=== PATIENT | male | born 1940 | race Two or more races ===

== ENCOUNTER 2016-11-22 06:36 | Day surgery (SDC) | payer MEDICARE, OTHER ==
--- NOTE | 2016-11-21 13:24 | Pre-Procedure Note/Attestation ---
Pre-Procedure Note/Attestation Complete Prior to Procedure Planned Procedure: right Procedure Narrative: phaco with IOL, OD Indications for Procedure Pre-Operative Diagnosis: cataract Attestation I attest that I discussed the nature of the procedure; its benefits; risks and complications; and alternatives (and the risks and benefits of such alternatives ), prior to the procedure, with the patient (or the patient's legal personal service representative). I attest that, if there was a reasonable possibility of needing a blood transfusion, the patient (or the patient's legal personal service representative) was given the [facility] standardized written summary, pursuant to the [place] Blood Safety Act ([place] Health and Safety Code # 1645, as amended). I attest that I re-evaluated the patient just prior to the surgery and that there has been no change in the patient's H&P, except as documented below: MARQUITA SAMUEL Nov 21, 2016 13:24
--- NOTE | 2016-11-21 16:20 | Opthalmology H&P ---
Ophthalmology H&P H&P Chief Complaint: decreased vision in right eye HPI Vision Affects Ability to: read, focus/use eyes together, manage personal affairs HPI Narrative blurry vision Exam Visual Acuity: OD: 20/50 OS: 20/125 Tension: OD: 17 OS: 18 Eye Exam: normal OU: anterior chambers, corneas, external exam, levator function, marginal reflex distance, palpebral fissure-width, findings: fundus exam - Retinal hole OS, lens - OD: ns OS: ns Assessment/Plan Diagnosis: (1) Cataract Treatment Plan: cataract extraction w/ lens implant Goals of Treatment: improvement of vision, enhance quality of life Attestation Attestation The risks and benefits of the surgery as well as alternative procedures were explained to the patient in detail. MARQUITA SAMUEL Nov 21, 2016 16:20
[2016-11-22] VITALS (8 sets, daily range): BP systolic 104–131; BP diastolic 47–78
[~2016-11-22] VITALS: Ht 170.2 cm; Wt 77.1 kg
[~2016-11-22 06:36] MED LIST: CRESTOR10 M2 ORAL; IBUPROFEN600 MG ORAL; LOTENSIN40 MG ORAL; NORVASC10 MG ORAL; PROSCAR5 MG ORAL
[2016-11-22] MEDS ORDERED: BSS 500ml btl ONE (07:00)
[2016-11-22] MEDS ORDERED: Maxitrol Opth Oint 3.5gm ONE (07:00)
[2016-11-22] MEDS ORDERED: EPINEPHrine 1mg/1ml Amp ONE (07:00)
[2016-11-22] MEDS ORDERED: Pred Forte 1% Opth Susp 1ml ONE (07:00)
[2016-11-22] MEDS ORDERED: Dexamethasone 4mg/ml vial ONE (07:00)
[2016-11-22] MEDS ORDERED: Akten 3.5% 1ml Btl RIGHT EYE ONE (07:00)
[2016-11-22] MEDS ORDERED: Tobramycin Op Soln 0.3% RIGHT EYE SCH (07:00)
[2016-11-22] MEDS: Tropicamide 1% Opth Soln RIGHT EYE SCH ×3 (08:27→08:44)
[2016-11-22] MEDS: Cyclopentolate 1% Opth Sol RIGHT EYE SCH ×3 (08:27→08:44)
[2016-11-22] MEDS: Ciprofloxacin Opth Soln RIGHT EYE SCH ×3 (08:27→08:44)
[2016-11-22] MEDS: Diclofenac Sod 0.1% Op Soln RIGHT EYE SCH ×3 (08:27→08:44)
[2016-11-22] MEDS: Phenylephrine 10% Opth Soln 5ml RIGHT EYE SCH ×3 (08:27→08:44)
[2016-11-22] MEDS ORDERED: NS Irrig 1000ml ONE (09:30)
[2016-11-22] MEDS ORDERED: Midazolam 2mg/2ml Inj ONE (09:30)
[2016-11-22] MEDS ORDERED: LR 1000ml ONE (09:30)
[2016-11-22] MEDS ORDERED: Sterile Water Irrig 1000ml IRRIG ONE (09:30)
[2016-11-22] MEDS ORDERED: Propofol 10mg/ml 20ml IV ONE (09:30)
[2016-11-22] MEDS ORDERED: fentaNYL 100 mcg/2 mL IV ONE (09:30)
[2016-11-22] MEDS ORDERED: LR 1000ml 1,000 ML IVLG SCH (09:57)
--- NOTE | 2016-11-22 09:57 | Anethesia Preoperative Eval ---
Anesthesia Pre-op PMH/ROS General Date of Evaluation: Nov 22, 2016 Time of Evaluation: 09:26 Anesthesiologist: Chacha ASA Score: ASA 2 Mallampati Score Class I : Soft palate, uvula, fauces, pillars visible Class II: Soft palate, uvula, fauces visible Class III: Soft palate, base of uvula visible Class IV: Only hard plate visible Mallampati Classification: Class II Surgeon: Britney Diagnosis: R eye cataract Surgical Procedure: R eye cataract extraction Anesthesia History: none Family History: no anesthesia problems Allergies: Coded Allergies: No Known Allergies (Unverified , 11/20/16) Medications: see eMAR Past Medical History Cardiovascular: Reports: HTN Pulmonary: Denies: COPD, ADALBERTO, asthma, other Gastrointestinal/Genitourinary: Reports: GERD, Denies: CRI, ESRD, other Neurologic/Psychiatric: Reports: depression/anxiety, Denies: CVA, TIA, dementia, other Endocrine: Denies: DM, hypothyroidism, other, steroids HEENT: Reports: cataract (L), cataract (R), Denies: HOPI (L), HOPI (R), glaucoma, other Hematology/Immune: Denies: DVT, anemia, bleeding disorder, other Musculoskeletal/Integumentary: Denies: DDD, DJD, OA, RA, edema, other PMH Narrative: as above PSxH Narrative: R knee Sx Anesthesia Pre-op Phys. Exam Physician Exam Last Vital Signs Date Time Temp Pulse Resp B/P Pulse Ox O2 Delivery O2 Flow Rate FiO2 11/22/16 08:35 98.0 57 18 131/78 96 Room Air Constitutional: NAD Neurologic: CN 2-12 intact Cardiovascular: RRR, no M/R/G Respiratory: CTA Gastrointestinal: S/NT/ND Airway Exam Mallampati Score: Class II MO: limited Neck: stiff ROM: limited Teeth: missing Dentures: lower, upper Anesthesia Pre-op A/P Labs see chart Studies Pre-op Studies: EKG - NSR Risk Assessment & Plan Assessment: ASA 2 Plan: MAC Status Change Before Surgery: No Pre-Antibiotics Drug: none CARLOS WADE M.D. Nov 22, 2016 09:57
[2016-11-22] MEDS ORDERED: DiphenhydrAMINE 50mg/ml Inj IVP PRN (10:00)
[2016-11-22] MEDS ORDERED: fentaNYL 100 mcg/2 mL IV PRN (10:00)
--- NOTE | 2016-11-22 11:15 | Immediate Post-Op Evaluation ---
Immediate Post-Op Evalulation Immediate Post-Op Evalulation Procedure: R eye cataract extraction with IOL Date of Evaluation: Nov 22, 2016 Time of Evaluation: 10:08 IV Fluids: 200 Blood Products: none Estimated Blood Loss: none Urinary Output: none Blood Pressure Systolic: 148 Blood Pressure Diastolic: 65 Pulse Rate: 62 Respiratory Rate: 20 O2 Sat by Pulse Oximetry: 98 Temperature (Fahrenheit): 97.6 Pain Score (1-10): 1 Nausea: No Vomiting: No Complications none Patient Status: awake, patent, none Hydration Status: adequate CARLOS WADE M.D. Nov 22, 2016 11:15
--- NOTE | 2016-11-22 11:16 | 48 Hour Post Anesthesia Eval ---
Post Anesthesia Evaluation Procedure: R eye cataract extraction with IOL Date of Evaluation: Nov 22, 2016 Time of Evaluation: 11:15 Blood Pressure Systolic: 136 0: 72 Pulse Rate: 58 Respiratory Rate: 20 Temperature (Fahrenheit): 97.6 O2 Sat by Pulse Oximetry: 98 Airway: patent Nausea: No Vomiting: No Pain Intensity: 2 Hydration Status: adequate Cardiopulmonary Status: stable Mental Status/LOC: patient returned to baseline Follow-up Care/Observations: n/a Post-Anesthesia Complications: none Follow-up care needed: ready to discharge CARLOS WADE M.D. Nov 22, 2016 11:16
--- NOTE | 2016-11-22 12:15 | Brief Operative Note ---
Immediate Post Operative Note Operative Note Chief Complaint: blurry vision Pre-op Diagnosis: cataract Procedure: phaco with IOL, OD Post-op Diagnosis: pseudophakia Post-op Diagnosis: same as pre-op Findings: consistent w/pre-op dx studies Surgeon: Britney Anesthesiologist: Chacha Anesthesia: MAC Specimen: none Complications: none Condition: stable Estimated Blood Loss: none Drains: none Implant(s) used?: Yes MARQUITA SAMUEL Nov 22, 2016 12:15
--- NOTE | 2016-11-22 12:18 | Operative Note - PDOC ---
Operative Note Operative Note Date of Operation/Procedure: Nov 22, 2016 Chief Complaint: blurry vision Pre-op Diagnosis: cataract Procedure: phaco with IOL, OD Post-op Diagnosis: pseudophakia Post-op Diagnosis: same as pre-op Operative Findings: consistent w/pre-op dx studies Surgeon: Britney Anesthesiologist: Chacha Anesthesia: MAC Specimen: none Complications: none Condition: stable Estimated Blood Loss: none Drains: none Implant(s) used?: Yes Indications for Procedure cataract Description of Procedure This patient has been complaining visually significant cataract in the affected eye with the best corrected visual acuity under moderate glare conditions worse. The patient complains of difficulties with glare in performing activities of daily living and wants to manage personal affairs with comfort and accuracy and see well enough to move with safety at home and outdoors. ~~~ The risks, benefits and alternatives of the procedure were discussed with the patient in the office prior to scheduling surgery. All questions from the patient were answered after the surgical procedure was explained in detail. The risks of the procedure as explained to the patient include, but are not limited to, pain, infection, bleeding, loss of vision, retinal detachment, need for further surgery, loss of lens nucleus, double vision, etc. Alternative procedures were discussed which include, to do nothing or seek a second opinion. Informed consent for this procedure was obtained from the patient. The patient was referred to a primary care physician for a cardiopulmonary clearance prior to surgery, after proper evaluation was done patient was properly scheduled for outpatient surgery. The patient was brought to the operating room where the anesthesiologist established I.V. lines and cardiac monitoring leads. Mild intravenous sedation was administered.~~ The patient was then prepared with a 5% solution of povidone -iodine to the conjunctival fornix and lashes, and a 10% solution of povidone- iodine to the lids and periorbital skin. The patient was then draped in the usual sterile fashion. A lid speculum was then placed in the operative eye. A keratome blade was then used to create a biplanar incision into the anterior chamber. Viscoelastics was then instilled into the anterior chamber. A capsulorrhexis was then fashioned with an utrata forceps followed by hydrodissection and hydro delineation of the lens nucleus. Paracentesis incision was made at 3 o'clock with sharp blade. The phacoemulsification unit, after being properly adjusted~ and tested, was then used to emulsify the nucleus. Residual cortical material was aspirated with the irrigation and aspiration unit. Healon was then instilled into the anterior chamber. The corneal wound was then enlarged to the size of the optic with the melissa keratome blade. The intraocular lens was then inspected for right~ power and size~ and thought to be satisfactory. Then the lens was gently placed in the capsular bag. Positioning within the capsular bag was confirmed by direct visualization. Viscoelastics~ was removed from the anterior chamber using the irrigation and aspiration unit. The corneal wound was then tested for leaks and none were found. The lid speculum were then removed. Sponge and needle counts were correct. An eye patch and shield were placed over the operative eye. The patient was taken to the recovery room in stable condition. There were no complications. The patient tolerated the procedure well. The patient was then transferred to the ambulatory surgery unit in stable and satisfactory condition , was given detailed written instructions and asked to follow up~ in the office the next day. ~ ~ Dictated & Transcribed: AMANDA Elio KUMAR JAMES Nov 22, 2016 12:18
[2016-11-22] MEDS ORDERED: Povidone-Iodine 5% opth solution ONE (12:27)
[2016-11-22] MEDS ORDERED: Sodium Hyaluronate 14 mg/ml 0.85ml ONE (12:28)
[2016-11-22] MEDS ORDERED: BSS 15ml BTL ONE (12:28)
== END 2016-11-22 11:30 | disposition home or self-care (01) ==
LOC: SUR 06:36
DX: H26.9 Unspecified cataract (principal); I10 Essential (primary) hypertension; F41.9 Anxiety disorder, unspecified; F32.9 Major depressive disorder, single episode, unspecified; N40.0 Benign prostatic hyperplasia without lower urinary tract symptoms; J44.9 Chronic obstructive pulmonary disease, unspecified; M19.90 Unspecified osteoarthritis, unspecified site; K21.9 Gastro-esophageal reflux disease without esophagitis; Z79.899 Other long term (current) drug therapy
CPT/HCPCS: 66984; J0171; J1100; J2250; J2704; J3010; J3370; J7120; V2632; 94003; 94150

== ENCOUNTER → 2017-01-17 | Day surgery (SDC) | payer MEDICARE, OTHER ==
--- NOTE | 2017-01-16 15:16 | Pre-Procedure Note/Attestation ---
Pre-Procedure Note/Attestation Complete Prior to Procedure Planned Procedure: left Procedure Narrative: phaco with IOL, OS Indications for Procedure Pre-Operative Diagnosis: cataract, OS Attestation I attest that I discussed the nature of the procedure; its benefits; risks and complications; and alternatives (and the risks and benefits of such alternatives ), prior to the procedure, with the patient (or the patient's legal compliance representative). I attest that, if there was a reasonable possibility of needing a blood transfusion, the patient (or the patient's legal compliance representative) was given the [facility] standardized written summary, pursuant to the [place] Blood Safety Act ([place] Health and Safety Code # 1645, as amended). I attest that I re-evaluated the patient just prior to the surgery and that there has been no change in the patient's H&P, except as documented below: MARQUITA SAMUEL Jan 16, 2017 15:16
--- NOTE | 2017-01-16 15:17 | Opthalmology H&P ---
Ophthalmology H&P H&P Chief Complaint: decreased vision in left eye HPI Vision Affects Ability to: read, focus/use eyes together HPI Narrative blurry vision Exam Visual Acuity: OD: 20/30 OS: 20/80 Tension: OD: 14 OS; 19 Eye Exam: normal OU: external exam, palpebral fissure-width, marginal reflex distance, levator function, corneas, anterior chambers, findings: lens - OD: IOL OS: ns, fundus exam - Retinal Hole Assessment/Plan Diagnosis: (1) Cataract Treatment Plan: cataract extraction w/ lens implant Goals of Treatment: improvement of vision, enhance quality of life Attestation Attestation The risks and benefits of the surgery as well as alternative procedures were explained to the patient in detail. MARQUITA SAMUEL Jan 16, 2017 15:17
[2017-01-17] VITALS (9 sets, daily range): BP systolic 121–150; BP diastolic 64–84
[~2017-01-17] VITALS: Ht 172.7 cm; Wt 77.1 kg
[~2017-01-17] MED LIST changes: +Akten 3.5% 1ml Btl LEFT EYE ONE; +Atropine Inj 1mg/10ml Syr IV PRN; +BSS 15ml BTL ONE; +Carbachol 0.01% Op Soln 1.5ml vial ONE; +DiphenhydrAMINE 50mg/ml Inj IVP PRN; +Midazolam 2mg/2ml Inj IVP PRN; +Povidone-Iodine 5% opth solution ONE; +Sodium Hyaluronate 14 mg/ml 0.85ml ONE; +fentaNYL 100 mcg/2 mL IV PRN
[2017-01-17] MEDS: Ketorolac Tromethamine Opth Soln LEFT EYE SCH ×3 (10:29→10:53)
[2017-01-17] MEDS: Cyclopentolate 1% Opth Sol LEFT EYE SCH ×3 (10:30→10:54)
[2017-01-17] MEDS: Tropicamide 1% Opth Soln LEFT EYE SCH ×3 (10:30→10:53)
[2017-01-17] MEDS: Tobramycin Op Soln 0.3% LEFT EYE SCH ×3 (10:30→10:53)
[2017-01-17] MEDS: Phenylephrine 10% Opth Soln 5ml LEFT EYE SCH ×3 (10:30→10:53)
--- NOTE | 2017-01-17 13:52 | Anethesia Preoperative Eval ---
Anesthesia Pre-op PMH/ROS General Date of Evaluation: Jan 17, 2017 Time of Evaluation: 13:23 Anesthesiologist: bakari ASA Score: ASA 3 Mallampati Score Class I : Soft palate, uvula, fauces, pillars visible Class II: Soft palate, uvula, fauces visible Class III: Soft palate, base of uvula visible Class IV: Only hard plate visible Mallampati Classification: Class II Surgeon: francisca Diagnosis: cataract left eye Surgical Procedure: cataract extraction w/ iol left Anesthesia History: none Social History: current smoker Family History: no anesthesia problems Allergies: Coded Allergies: No Known Allergies (Unverified , 11/20/16) Medications: see eMAR Past Medical History Cardiovascular: Reports: HTN Pulmonary: Reports: COPD Musculoskeletal/Integumentary: Reports: OA Anesthesia Pre-op Phys. Exam Physician Exam Last Vital Signs Date Time Temp Pulse Resp B/P (MAP) Pulse Ox O2 Delivery O2 Flow Rate FiO2 01/17/17 10:32 96.9 56 18 121/64 99 Room Air Constitutional: NAD Neurologic: CN 2-12 intact Cardiovascular: RRR Respiratory: CTA Gastrointestinal: S/NT/ND Airway Exam Mallampati Score: Class II MO: full Neck: supple TMD: 2fb ROM: full Anesthesia Pre-op A/P Risk Assessment & Plan Assessment: asa3 Plan: mac Status Change Before Surgery: No Pre-Antibiotics Drug: YESY Ludwig Jan 17, 2017 13:52
--- NOTE | 2017-01-17 16:03 | Immediate Post-Op Evaluation ---
Immediate Post-Op Evalulation Immediate Post-Op Evalulation Procedure: cataract extraction w/ iol left Date of Evaluation: Jan 17, 2017 Time of Evaluation: 14:27 IV Fluids: 300ml lr Blood Products: none Estimated Blood Loss: negligible Blood Pressure Systolic: 132 Blood Pressure Diastolic: 80 Pulse Rate: 74 Respiratory Rate: 18 O2 Sat by Pulse Oximetry: 100 Temperature (Fahrenheit): 98.0 Pain Score (1-10): 0 Nausea: No Vomiting: No Complications none Patient Status: awake, reacts, patent Hydration Status: adequate Drug: YESY Ludwig Jan 17, 2017 16:03
--- NOTE | 2017-01-17 16:05 | 48 Hour Post Anesthesia Eval ---
Post Anesthesia Evaluation Procedure: cataract extraction w/ iol left Date of Evaluation: Jan 17, 2017 Time of Evaluation: 16:03 Blood Pressure Systolic: 136 0: 84 Pulse Rate: 75 Respiratory Rate: 18 Temperature (Fahrenheit): 98.0 O2 Sat by Pulse Oximetry: 100 Airway: patent Nausea: No Vomiting: No Pain Intensity: 0 Hydration Status: adequate Cardiopulmonary Status: stable Mental Status/LOC: patient returned to baseline Post-Anesthesia Complications: none Follow-up care needed: N/A YESY TELLO Jan 17, 2017 16:05
--- NOTE | 2017-01-18 09:21 | Brief Operative Note ---
Immediate Post Operative Note Operative Note Chief Complaint: blurry vision Pre-op Diagnosis: cataract, OS Procedure: phako with IOL, OS Post-op Diagnosis: Pseudophakia Post-op Diagnosis: same as pre-op Findings: consistent w/pre-op dx studies Surgeon: Britney Anesthesiologist: Miguel Angel Rangel Anesthesia: MAC Specimen: none Complications: none Condition: stable Fluids: LR Drains: none Implant(s) used?: Yes MARQUITA SAMUEL Jan 18, 2017 09:21
--- NOTE | 2017-01-18 10:26 | Operative Note - PDOC ---
Operative Note Operative Note Date of Operation/Procedure: Jan 17, 2017 Chief Complaint: blurry vision Pre-op Diagnosis: cataract, OS Procedure: phako with IOL, OS Post-op Diagnosis: Pseudophakia Post-op Diagnosis: same as pre-op Operative Findings: consistent w/pre-op dx studies Surgeon: Britney Anesthesiologist: Miguel Angel Rangel Anesthesia: MAC Specimen: none Complications: none Condition: stable Fluids: LR Drains: none Implant(s) used?: Yes Indications for Procedure Cataract Description of Procedure This patient has been complaining visually significant cataract in the affected eye with the best corrected visual acuity under moderate glare conditions worse. The patient complains of difficulties with glare in performing activities of daily living and wants to manage personal affairs with comfort and accuracy and see well enough to move with safety at home and outdoors. ~~~ The risks, benefits and alternatives of the procedure were discussed with the patient in the office prior to scheduling surgery. All questions from the patient were answered after the surgical procedure was explained in detail. The risks of the procedure as explained to the patient include, but are not limited to, pain, infection, bleeding, loss of vision, retinal detachment, need for further surgery, loss of lens nucleus, double vision, etc. Alternative procedures were discussed which include, to do nothing or seek a second opinion. Informed consent for this procedure was obtained from the patient. The patient was referred to a primary care physician for a cardiopulmonary clearance prior to surgery, after proper evaluation was done patient was properly scheduled for outpatient surgery. The patient was brought to the operating room where the anesthesiologist established I.V. lines and cardiac monitoring leads. Mild intravenous sedation was administered.~~ The patient was then prepared with a 5% solution of povidone -iodine to the conjunctival fornix and lashes, and a 10% solution of povidone- iodine to the lids and periorbital skin. The patient was then draped in the usual sterile fashion. A lid speculum was then placed in the operative eye. A keratome blade was then used to create a biplanar incision into the anterior chamber. Viscoelastics was then instilled into the anterior chamber. A capsulorrhexis was then fashioned with an utrata forceps. BSS and a cannula were then used to hydrodissect and hydro delineate the dense lens nucleus. Paracentesis incision was made at 3 o'clock with sharp blade. The phacoemulsification unit, after being properly adjusted~ and tested, was then used to emulsify the dense nucleus. Residual cortical material was aspirated with the irrigation and aspiration unit. Healon was then instilled into the anterior chamber. The corneal wound was then enlarged to the size of the optic with the melissa keratome blade. The intraocular lens was then inspected for right~ power and size~ and thought to be satisfactory. Then the lens was gently placed in the capsular bag. Positioning within the capsular bag was confirmed by direct visualization. Optic centration was accomplished with a [place]ins[place] hook. Viscoelastics~ was removed from the anterior chamber using the irrigation and aspiration unit. The corneal wound was then tested for leaks and none were found. The lid speculum were then removed. Sponge and needle counts were correct. An eye patch and shield were placed over the operative eye. The patient was taken to the recovery room in stable condition. There were no complications. The patient tolerated the procedure well. The patient was then transferred to the ambulatory surgery unit in stable and satisfactory condition , was given detailed written instructions and asked to follow up~ in the office the next day. ~ ~ Dictated & Transcribed: [facility] Elio KUMAR JAMES Jan 18, 2017 10:26
== END | disposition home or self-care (01) ==
LOC: SUR 07:37
DX: H26.9 Unspecified cataract (principal); I10 Essential (primary) hypertension; J44.9 Chronic obstructive pulmonary disease, unspecified; M19.90 Unspecified osteoarthritis, unspecified site; F17.200 Nicotine dependence, unspecified, uncomplicated
CPT/HCPCS: 66984; V2632; 94003; 94150